=== PATIENT | male | born 1960 | race Two or more races ===

== ENCOUNTER → 2024-11-27 | Outpatient (CLI) | payer MEDICAID ==
[2024-11-27 09:37] LABS: Urine Bacteria None Seen /hpf (None Seen)
[2024-11-27 09:51] LABS: Basophils # (auto) 0 10 ^3/uL (0-0.2); Basophils % (auto) 0.5 % (0.0-2.0); Eosinophils # (auto) 0.3 10 ^3/uL (0-0.8); Eosinophils % (auto) 4.8 % (0.0-7.0); Hematocrit 43.8 % (41.0-53.0); Hemoglobin 14.9 g/dL (13.5-17.5); Lymphocytes # (auto) 1.5 10 ^3/uL (0.4-5.4); Lymphocytes % (auto) 26.8 % (10.0-50.0); Mean Corpuscular Volume 88.1 fL (80.0-100.0); Monocytes # (auto) 0.4 10 ^3/uL (0-1.3); Monocytes % (auto) 7.8 % (0.0-12.0); Neutrophils # (auto) 3.3 10 ^3/uL (1.6-8.6); Neutrophils % (auto) 60.1 % (37.0-80.0); Nucleated Red Blood Cells % 0.2 %; Platelet Count (auto) 184 10^3/uL (140-450); Red Blood Cells 4.97 10^6/uL (4.5-5.90); White Blood Cell 5.4 10^3/uL (4.4-10.8)
[2024-11-27 09:54] LABS: Urine Blood Negative /uL (Negative); Urine Budding Yeast OCCASIONAL /hpf (None Seen); Urine Clarity Clear (Clear); Urine Color Light-Yellow (Yellow); Urine Mucus FEW (None Seen); Urine Protein, UAD Negative (Negative); Urine Specific Gravity 1.015 (1.001-1.035); Urine Squamous Epithelial Cell None Seen /hpf (<5); Urine Urobilinogen Normal (Negative); Urine pH 6.5 (5.0-9.0)
[2024-11-27 09:57] LABS: Urine WBC < 1 /HPF (0-3)
[2024-11-27 10:12] LABS: Alanine Aminotransferase 28 U/L (7-40); Albumin 4.7 g/dL (3.2-4.8); Alkaline Phosphatase 67 U/L (46-116); Anion Gap 9 (5-15); Aspartate Aminotransferase 19 U/L (13-40); Blood Urea Nitrogen 19 mg/dL (9-23); Calcium 9.9 mg/dL (8.7-10.4); Carbon Dioxide 26 mmol/L (20-31); Chloride 106 mmol/L (98-107); Potassium 4.5 mmol/L (3.5-5.1); Prostate Specific Antigen 1.41 ng/mL (0.0-4.0); Sodium 141 mmol/L (136-145)
[2024-11-27 10:13] LABS: Bilirubin, Total 0.6 mg/dL (0.2-1.0); Cholesterol 182 mg/dL (< 200); HDL Cholesterol 52 mg/dL (40-59)
[2024-11-27 10:16] LABS: Free T4 (Free Thyroxine) 0.9 ng/dL (0.89-1.76)
[2024-11-27 10:17] LABS: Glucose 108 mg/dL (74-106); LDL Cholesterol 122 mg/dL (< 100); Triglycerides 160 mg/dL (< 150)
== END | disposition home or self-care (01) ==
LOC: LAB 09:25
PROVIDERS: ATTEND Internal Medicine
DX: I12.9 Hypertensive chronic kidney disease with stage 1 through stage 4 chronic kidney disease, or unspecified chronic kidney disease (principal); N18.2 Chronic kidney disease, stage 2 (mild); E78.2 Mixed hyperlipidemia; R73.03 Prediabetes; E66.89 Other obesity not elsewhere classified; Z00.01 Encounter for general adult medical examination with abnormal findings
CPT/HCPCS: 36415; 80053; 80061; 81001; 83036; 84153; 84439; 84443; 85025

== ENCOUNTER 2024-12-26 07:32 | Outpatient (CLI) | payer MEDICAID ==
[2024-12-26 08:39] LABS: Anion Gap 5 (5-15); Calcium 10.1 mg/dL (8.7-10.4); Carbon Dioxide 28 mmol/L (20-31); Potassium 4.1 mmol/L (3.5-5.1); Sodium 141 mmol/L (136-145)
[2024-12-26 08:41] LABS: BUN/Creatinine Ratio 11.5 (10.0-20.0); Blood Urea Nitrogen 12 mg/dL (9-23)
[2024-12-26 08:42] LABS: Chloride 108 mmol/L (98-107); Glucose 112 mg/dL (74-106); Triglycerides 236 mg/dL (< 150)
[2024-12-26 08:43] LABS: Cholesterol 215 mg/dL (< 200); HDL Cholesterol 53 mg/dL (40-59); LDL Cholesterol 147 mg/dL (< 100)
[2024-12-26 08:55] LABS: Free T4 (Free Thyroxine) 0.95 ng/dL (0.89-1.76)
[2024-12-26 08:59] LABS: Free T3 2.93 pg/mL (2.3-4.2)
== END 2024-12-26 17:00 | disposition home or self-care (01) ==
LOC: LAB 07:32
PROVIDERS: ATTEND Internal Medicine
DX: I12.9 Hypertensive chronic kidney disease with stage 1 through stage 4 chronic kidney disease, or unspecified chronic kidney disease (principal); N18.2 Chronic kidney disease, stage 2 (mild); E78.2 Mixed hyperlipidemia; R73.03 Prediabetes
CPT/HCPCS: 36415; 80048; 80061; 82274; 83036; 84439; 84443; 84481